=== PATIENT | female | born 1975 | race Caucasian/White ===

== ENCOUNTER → 2018-08-28 | Outpatient (CLI) | payer BC | END | disposition home or self-care (01) | LOC: RAH 08:41 | PROVIDERS: ATTEND Family Medicine | DX: Z12.31 Encounter for screening mammogram for malignant neoplasm of breast (principal) | CPT/HCPCS: 77067 ==

== ENCOUNTER → 2019-09-10 | Outpatient (CLI) | payer BC | END | disposition home or self-care (01) | LOC: RAH 08:48 | PROVIDERS: ATTEND Family Medicine | DX: Z12.31 Encounter for screening mammogram for malignant neoplasm of breast (principal); N64.89 Other specified disorders of breast | CPT/HCPCS: 77067 ==

== ENCOUNTER → 2020-10-27 | Outpatient (CLI) | payer BC | END | disposition home or self-care (01) | LOC: RAH 08:16 | PROVIDERS: ATTEND Family Medicine | DX: Z12.31 Encounter for screening mammogram for malignant neoplasm of breast (principal) | CPT/HCPCS: 77067 ==

== ENCOUNTER → 2021-11-30 | Outpatient (CLI) | payer BC | END | disposition home or self-care (01) | LOC: RAH 15:22 | PROVIDERS: ATTEND Obstetrics & Gynecology | DX: Z12.31 Encounter for screening mammogram for malignant neoplasm of breast (principal) | CPT/HCPCS: 77067 ==

== ENCOUNTER → 2023-03-22 | Outpatient (CLI) | payer BC | END | disposition home or self-care (01) | LOC: RAH 10:28 | PROVIDERS: ATTEND Obstetrics & Gynecology | DX: Z12.31 Encounter for screening mammogram for malignant neoplasm of breast (principal) | CPT/HCPCS: 77067 ==

== ENCOUNTER → 2023-11-30 | Outpatient (CLI) | payer BC | END | disposition home or self-care (01) | LOC: RAH 10:38 | PROVIDERS: ATTEND Obstetrics & Gynecology | DX: N91.1 Secondary amenorrhea (principal) | CPT/HCPCS: 76830 ==

== ENCOUNTER → 2024-09-29 | Outpatient (CLI) | payer BC ==
--- NOTE | 2024-09-29 10:33 | HMCIMG ---
MAMMO SCREENING BILATERAL HISTORY: Screening mammogram. COMPARISON: 03/22/2023 TECHNIQUE: Bilateral screening mammogram with CAD was performed with craniocaudal and mediolateral oblique projections. FINDINGS: There are scattered areas of fibroglandular density. Small nodular density is again seen in the upper outer quadrant of the left breast suggestive of intramammary lymph node unchanged. There is no evidence of a dominant mass, or suspicious microcalcification. There is no evidence of nipple retraction or skin thickening. IMPRESSION: 1. Stable mammogram. Patient was entered into a reminder system with a target due date for their next mammogram. BI-RADS: CATEGORY 2: BENIGN FINDINGS Recommend monthly self breast exam as well as annual clinical examination. A negative x-ray should not delay biopsy if a dominant or clinically suspicious mass is present, since 8-10% of cancers are not identified by mammography. Dense breasts particularly, may obscure an underlying neoplasm. Some of these may be detected clinically and therefore, clinical examination is an essential part of breast evaluation.
== END | disposition home or self-care (01) ==
LOC: RAH 09:02
PROVIDERS: ATTEND Obstetrics & Gynecology
DX: Z12.31 Encounter for screening mammogram for malignant neoplasm of breast (principal); R92.323 Mammographic fibroglandular density, bilateral breasts
CPT/HCPCS: 77067

== ENCOUNTER → 2025-06-18 | Outpatient (CLI) | payer BC ==
--- NOTE | 2025-06-19 01:37 | HMCIMG ---
STUDY: TRANSVAGINAL PELVIC ULTRASOUND CLINICAL INFORMATION: Oligomenorrhea. Last menstrual period June 2024. TECHNIQUE: Transvaginal ultrasound examination of the uterus and adnexa was performed using grayscale imaging with Doppler evaluation as needed. COMPARISON: None provided. FINDINGS: UTERUS: Uterus measures approximately 5.9 x 3.4 x 3.5 cm and appears normal in size and myometrial echotexture. No focal myometrial mass is identified. ENDOMETRIUM: Endometrial thickness measures approximately 4 mm and appears thin and normal for age and clinical context. RIGHT OVARY: Right ovary measures approximately 2.3 x 1.6 x 2.0 cm with normal echotexture. No cyst or adnexal mass is identified. LEFT OVARY: Left ovary measures approximately 2.6 x 1.7 x 1.9 cm with normal echotexture. No cyst or adnexal mass is identified. FREE FLUID: No free fluid is seen in the pelvis. IMPRESSION: * Normal uterus with a thin, normal-appearing endometrium (4 mm). * Normal-appearing ovaries bilaterally without adnexal mass or pelvic free fluid. * No sonographic abnormality identified to explain oligomenorrhea. /[employer]
== END | disposition home or self-care (01) ==
LOC: RAH 11:18
PROVIDERS: ATTEND Obstetrics & Gynecology
DX: N91.5 Oligomenorrhea, unspecified (principal)
CPT/HCPCS: 76830